=== PATIENT | male | born 2000 | race African-American/Black ===

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

== ENCOUNTER 2022-12-05 16:21 | Emergency (ER) | payer OTHER, SELFPAY ==
--- NOTE | ~2022-12-05 | XR_ITS ---
EXAMINATION: XR shoulder RT min 2V INDICATION: Right shoulder pain TECHNIQUE: Four views of the right shoulder are submitted. COMPARISON: None FINDINGS: Normal alignment. No fracture. Glenohumeral and acromioclavicular joint spaces are normal. Soft tissues are unremarkable. IMPRESSION: 1. No acute osseous abnormality. Reviewed, dictated and finalized at location F.
[2022-12-05 16:24] VITALS: BP 123/81; PULSE 85; RESP 20; TEMP 36.6; O2SAT 98
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
[2022-12-05] MEDS: CYCLOBENZAPRINE HCL 10 MG TABLET PO (19:04)
[2022-12-05] MEDS: KETOROLAC (*BKC) 60 MG/2 ML VIAL IM (19:04)
[2022-12-05 20:00] VITALS: BP 130/84; PULSE 88; RESP 19; O2SAT 97
== END 2022-12-05 20:00 | disposition home or self-care (01) ==
PROVIDERS: Emergency Provider Physician Assistant
DX: S46.911A Strain of unspecified muscle, fascia and tendon at shoulder and upper arm level, right arm, initial encounter (principal); V43.52XA Car driver injured in collision with other type car in traffic accident, initial encounter
CPT/HCPCS: 73030; 96372; 99283; A9270; J1885